=== PATIENT | female | born 1945 | race Caucasian/White ===

== ENCOUNTER → 2018-05-30 | Outpatient (CLI) | payer OTHER ==
[~2018-05-30] MED LIST: ACAI BERRY500 MG PO; ALLOPURINOL 30300 M2 PO; BURDOCK ROOT PO; CRANBERRY400 MG PO; DANDELION ROOT; DANDELION ROOT PO; ECHINACEA167 MG PO; FLAX OIL1000 MG PO; LUTEIN20 MG PO; MARSHMALLOW ROOT PO; ODORLESS GARLI500 MG PO; OMEGA Q PLUS PO; POTASSIUM ACETAT1 GM PO; PROBIOTIC & AC1 EACH PO; RESVERATROL100 MG PO; TART CHERRY EXTRACT PO; VITAMIN D3 PO; VITAMIN E600 UNIT PO; VITCB500GO PO; [UNRECOGNIZED DRUG - OTHER] PO; [UNRECOGNIZED DRUG - OTHER] PO; [UNRECOGNIZED DRUG - OTHER] PO; [UNRECOGNIZED DRUG - OTHER] PO
== END ==
LOC: M.RAD 08:56
DX: Z12.31 Encounter for screening mammogram for malignant neoplasm of breast (principal); N91.2 Amenorrhea, unspecified; E87.6 Hypokalemia; Z78.0 Asymptomatic menopausal state

== ENCOUNTER 2018-07-24 17:15 | Inpatient (IN) | payer OTHER ==
[~2018-07-24] VITALS: Ht 162.6 cm; Wt 33.6 kg
[~2018-07-24 17:15] MED LIST changes: -POTASSIUM ACETAT1 GM PO
[2018-07-24 17:23] VITALS: BP 115/66
[2018-07-24] MEDS ORDERED: POTASSIUM ACETAT1 GM PO (17:30)
[2018-07-24 17:42] LABS: HEMATOCRIT 25.4 % (37.0-47.0); HEMOGLOBIN 7.9 gm/dL (12.0-15.0); MCHC 31.2 g/dL (28.0-37.0); MCV 73.5 fL (80.0-100.0); MPV 6.5 fl. (7.2-11.1); NUCLEATED RBCS 0 /100WBC; PLATELET COUNT* 497 thou/uL (150-400); RBC 3.45 mil/uL (4.20-5.00); RDW-CV 16.4 % (10.5-14.5); WBC 8.5 thou/uL (4.0-11.0)
[2018-07-24 17:48] LABS: APTT 24.5 Seconds (25.0-31.3); PROTIME 9.9 Seconds (9.20-11.50)
[2018-07-24 17:58] LABS: ALBUMIN 3.3 g/dL (3.4-5.0); ALKALINE PHOSPHATASE 88 U/L (46-116); ANION GAP 1 mmol/L (7-16); BUN 39 mg/dL (7-18); CALCIUM 9.6 mg/dL (8.5-10.1); CHLORIDE 86 mmol/L (98-107); CREATININE 2.5 mg/dL (0.6-1.3); GLUCOSE 115 mg/dL (70-99); NT-PRO BRAIN NAT PEPTIDE 281 pg/mL (<300); SGOT 24 U/L (15-37); SGPT 18 U/L (30-65); SODIUM 132 mmol/L (136-145); TOTAL BILIRUBIN 0.3 mg/dL (<0.1-1.0); TOTAL PROTEIN 7.2 g/dL (6.4-8.2); TROPONIN-I LEVEL <0.06 ng/mL (<0.06)
[2018-07-24 18:03] LABS: CO2 45 mmol/L (21-32)
[2018-07-24 18:04] LABS: POTASSIUM 2.5 mmol/L (3.5-5.1)
[2018-07-24 18:09] LABS: ABSOLUTE LYMPHOCYTES 0.9 thou/uL (0.8-5.3); ABSOLUTE MONOCYTES 0.5 thou/uL (0.0-1.2); ABSOLUTE NEUTROPHILS 7.1 thou/uL (1.6-8.1); ANISOCYTOSIS 1+; PLATELET ESTIMATE INCREASED
[2018-07-24 18:10] LABS: MICROCYTES 1+
[2018-07-24 18:11] LABS: HYPOCHROMASIA Occasional; OVALOCYTES Occasional
[2018-07-24 19:53] VITALS: BP 104/65
[2018-07-24 20:00] VITALS: BP 118/72
[2018-07-24 20:11] VITALS: BP 118/72
[2018-07-24 23:53] VITALS: BP 101/47
[2018-07-25] VITALS (7 sets, daily range): BP systolic 91–118; BP diastolic 48–71
[2018-07-25 00:40] LABS: URINE BILIRUBIN NEGATIVE (Negative); URINE BLOOD NEGATIVE (Negative); URINE CLARITY CLEAR; URINE COLOR YELLOW; URINE GLUCOSE-RANDOM NEGATIVE (Negative); URINE KETONES NEGATIVE (Negative); URINE LEUKOCYTES-REFLEX NEGATIVE (Negative); URINE NITRITE-REFLEX NEGATIVE (Negative); URINE PROTEIN NEGATIVE (Negative); URINE UROBILINOGEN 0.2 E.U./dl (0.2-1.0)
--- NOTE | 2018-07-25 04:41 | NUR ---
RECEIVED REPORT FROM ED NURSE. PT TRANSFERRED TO 227. PT A&OX4. VSS. ADMISSION HISTORY AND PHYSICAL ASSESSMENT COMPLETED AND CHARTED. PT ON RA WITH 98% O2 SAT. PT TRACING SR ON TELE. PT UP STANDBY ASSIST TO TOILET. DENIES ANY PAIN OR DISCOMFORT. ORIENTED TO ROOM AND CALL LIGHT. PT FOR CT OF THE ABDOMEN WITH ORAL CONTRAST THIS AM. HOURLY ROUNDING OBSERVED. CALL LIGHT WITHIN REACH. BED IN LOW POSITION. BED ALARM ON.
[2018-07-25 05:17] LABS: ABSOLUTE EOSINOPHILS 0.1 thou/uL (0.0-0.7); ABSOLUTE LYMPHOCYTES 1.1 thou/uL (0.8-5.3); ABSOLUTE MONOCYTES 0.6 thou/uL (0.0-1.2); ABSOLUTE NEUTROPHILS 3.5 thou/uL (1.6-8.1); BASOPHILS 0.9 %; EOSINOPHILS 1.3 %; HEMATOCRIT 20.8 % (37.0-47.0); LYMPHOCYTES 20.9 %; MCH 22.9 pg (26.0-34.0); MCV 73.8 fL (80.0-100.0); MONOCYTES 11.5 %; MPV 6.6 fl. (7.2-11.1); NUCLEATED RBCS 0 /100WBC; POLYS 65.4 %; RBC 2.82 mil/uL (4.20-5.00); RDW-CV 16.2 % (10.5-14.5); WBC 5.3 thou/uL (4.0-11.0)
[2018-07-25 05:25] LABS: POTASSIUM 3.6 mmol/L (3.5-5.1)
[2018-07-25 05:32] LABS: PLATELET COUNT* 400 thou/uL (150-400)
[2018-07-25 05:36] LABS: HEMOGLOBIN 6.5 gm/dL (12.0-15.0)
--- NOTE | 2018-07-25 16:15 | NUR ---
SPOKE WITH PT. SHE WAS ALERT AND ORIENTED. SHE SAID SHE LIVES HOME ALONE. HER FAMILY IS TRYING TO GET HER HOUSE READY TO SELL. SHE CAN'T LIVE BY HERSELF ANYMORE. SHE IS HAVING A LOT OF FALLS AND LEGS GIVE OUT. SHE WANTS TO FIND AN ASSISTED LIVING FACILITY. SHE IS SERIOUSLY LOOKING AT THE [place]. SHE HAS A VERYY SUPPORTIVE FAMILY. HER GRANDAUGHTER CAME IN WHILE I WAS THERE.SHE HAS A CANE AND WALKER AT HOME. SHE AHS ANNE MARIE PAY TO HAVE HER HOUSE CLEANED AND LAWN MOWED. SHE SAID SHE HAS WONDERFUL NEIGHBORS. PT.HAS TO ROLL AROUND ON A STOOL TO COOK IN THE KITCHEN. DISCUSSED MEALS ON WHEELS. SHE SAID SHE NEVER HAS HAD THEM BEFORE. CM WILL FOLLOW FOR DISCHARGE NEEDS.
--- NOTE | 2018-07-25 16:30 | EKG ---
[place] [address] ELECTROCARDIOGRAM REPORT Name: ANY NIETO Room: [place] [address] ADM IN .R.#: [id number] Admission: 07/24/18 Attend Phys: Lyle Harry MD Discharge: Date of : 41 Report #: [id number] THIS REPORT FOR: //name// [facility] ED Test Date: 2018-07-24 Test Time: 17:30:34 Pat Name: ANY NIETO Department: Room: [facility] Gender: F Shopping Inspector: NORMAN : 1945 Requested By: Benton Skelton Order Number: [id number] MD: Alex Anthony Measurements Intervals [place] Rate: 92 P: 92 CO: 182 QRS: -26 QRSD: 103 T: 90 QT: 378 QTc: 468 Interpretive Statements Sinus rhythm Short run of svt Borderline left axis deviation Anteroseptal infarct, age indeterminate Compared to ECG 03/12/2017 18:24:55 Myocardial infarct finding now present Left anterior fascicular block no longer present Electronically Signed On 07-25-2018 16:29:56 CDT by Alex Anthony [email or web address] <ELECTRONICALLY SIGNED> By: Alex Anthony MD, FACC 07/25/18 1629 1730 1730 Alex Anthony MD, FAC /EPI
[2018-07-26 03:52] VITALS: BP 122/77; BP 91/46
[2018-07-26 04:34] LABS: ABSOLUTE EOSINOPHILS 0.1 thou/uL (0.0-0.7); ABSOLUTE MONOCYTES 0.7 thou/uL (0.0-1.2); ABSOLUTE NEUTROPHILS 5.1 thou/uL (1.6-8.1); BASOPHILS 0.6 %; EOSINOPHILS 0.8 %; HEMATOCRIT 27.6 % (37.0-47.0); LYMPHOCYTES 14.7 %; MCH 24.4 pg (26.0-34.0); MCV 76.2 fL (80.0-100.0); MONOCYTES 10.6 %; MPV 6.5 fl. (7.2-11.1); NUCLEATED RBCS 0 /100WBC; PLATELET COUNT* 402 thou/uL (150-400); POLYS 73.3 %; RBC 3.62 mil/uL (4.20-5.00); RDW-CV 17.4 % (10.5-14.5); WBC 6.9 thou/uL (4.0-11.0)
[2018-07-26 04:47] LABS: CALCIUM 8.7 mg/dL (8.5-10.1); CREATININE 1.7 mg/dL (0.6-1.3)
[2018-07-26 05:00] LABS: HEMOGLOBIN 8.8 gm/dL (12.0-15.0)
--- NOTE | 2018-07-26 05:07 | NUR ---
ASSUMED CARE OF PT AFTER REPORT AT 1930. PT A&OX4. VSS. PHYSICAL ASSESSMENT COMPLETED AND CHARTED. PT ON RA WITH 99% O2 SAT. PT TRACING SR ON TELE. PT UP STANDBY ASSIST TO TOILET. PT REFUSED LOVENOX. THIS NURSE EXPLAINED THE INDICATION FOR LOVENOX. COMMUNICATES UNDERSTANDING BUT STILL REFUSES. PT STATED HER THROAT HURTS DUE TO COUGHING. SHE'S BEEN COUGHING SINCE SHE HAD HER CT WITH ORAL CONTRAST. PT REQUESTED FOR COUGH PILL-PROVIDER INFORMED. HOURLY ROUNDING OBSERVED. CALL LIGHT WITHIN REACH. BED IN LOW POSITION. BED ALARM ON.
[2018-07-26 05:30] LABS: POTASSIUM 2.9 mmol/L (3.5-5.1)
[2018-07-26 08:00] VITALS: BP 100/62
[2018-07-26 11:55] VITALS: BP 96/57
--- NOTE | 2018-07-26 14:17 | NUR ---
CONTINUE TO FOLLOW, PT HAS DC ORDERS. MET WITH PT, SHE DECLINES HH. STATES SHE DOESN'T WANT ANY 'HOME VISITS.' PLANS TO RETURN HOME. STATES THEY ARE IN THE PROCESS OF CLEANING OUT HER HOME AND SELLING IT SO SHE CAN MOVE.
--- NOTE | 2018-07-26 16:27 | NUR ---
ASSUMED CARE OF PT AT 0740. PT REMAINS A&O X4 CALM AND COOPERATIVE. VSS AND TRACING SR ON THE MONITOR. PT HAS HAD NO C/O PAIN OR DISTRESS TODAY AND IS BEING DISCHARGED HOME AT THIS TIME. PT AND DAUGHTER VERBALIZED UNDERSTANDING OF DC INSTRUCTIONS. ALL PERSONAL BELONGINGS AND DISCHARGE PAPERWORK TAKEN BY PT AT DISCHARGE.
--- NOTE | 2018-08-05 09:50 | CON ---
[address] [address] CONSULTATION Name: ANY NIETO Room: 227-1 [facility] IN M.R.#: [id number] Admission: 07/24/18 Attend Phys: Lyle Harry MD Discharge: 07/26/18 Date of : 41 Report #: [id number] THIS REPORT FOR: //name// CC: Lyle Grimaldo DATE OF SERVICE: 07/25/2018 ROOM NUMBER: 227. HISTORY OF PRESENT ILLNESS: This is a 72-year-old female patient who is not a very good historian. This patient has multiple problems over a period of time. She also try to manage many of those problems by herself by taking some dietary supplements and herbs as she has taken that for a long time. She has not taken the treatment, which was prescribed to her for her anemia. She indicates that she has unintentional weight loss, her appetite is poor and she has been falling down. Her falling down is because of weakness as well as she indicates she has episode where she will have sudden loss of strength in her lower extremities. She describes something like a drop attack. How often that it happened is not clear. She has not hurt herself with this. She does not know whether she gets an opportunity to sit down or break the fall. History is just very vague in that regard. She is losing weight. She is anemic and when she came in, she was also hypokalemic. This is also associated with pretty significantly impaired dietary intake. She had those trauma, which started it and all of it started spontaneously. REVIEW OF SYSTEMS: Positive for anemia, hypokalemia, chronic renal disease, weakness in all 4 extremities. Prior history of anemia from which she took shot, prior history of kidney failure for which I do not think she had followup. Even before, she has been admitted with hypokalemia. She did have a TSH and vitamin B12 during this admission and that was unremarkable. She denies any associated stroke. At one time, she had a kidney tumor removed. This was her relevant 14-point review of systems. She denies any new eye, ENT, cardiac, respiratory, , musculoskeletal, constitutional, dermatological, hematological, psychiatric, throat, allergic symptom associated with present symptomatology except as described above. PAST MEDICAL HISTORY: Positive for anemia as well as kidney failure. FAMILY HISTORY: Negative for any early age stroke. SOCIAL HISTORY: This patient does not smoke or drink alcohol. PHYSICAL EXAMINATION: Indicates she is alert, responsive, oriented. Her speech, concentration, fund of knowledge and memory is a reasonably preserved. Cranial nerve examination 2-12 looks unremarkable. She is weak in all 4 [place] [address] CONSULTATION Name: ANY NIETO Room: [address] IN ..#: [id number] Admission: 07/24/18 Attend Phys: Lyle Harry MD Discharge: 07/26/18 Date of : 41 Report #: [id number] extremities. She has generalized weakness. Her muscle and in general, she appears emaciated. I could not elicit the reflexes in the lower extremities. Her position sense is intact. Her tone is unremarkable. [id number] is unremarkable. I could not look at the fundus. She is very thinly built individual whose vision and hearing look adequate. Her pulses are palpable in the lower extremities. She has no edema, cyanosis or jaundice. Cardiac examination is unremarkable. No respiratory difficulty or rhonchi. No thyroid mass or carotid bruit, no meningeal sign or facial dysmorphic feature. Her blood pressure is 98/48, respiration is 17, pulse is 72, temperature is 98.4. LABORATORY DATA: Her hemoglobin is only 6.5 and when she came in, her potassium was 2.5. Her GFR is 24 now, it was 19 when she came. She did have a CT scan of the head on admission, which shows generalized atrophy. IMPRESSION: This patient's history is extremely poor and a definite diagnosis is not possible. I suspect many of the patient's problem is because of inadequate p.o. intake. This episode she is having where she falls is not clear. I suspect they may also be related to her metabolic problems. However, the way she describes, we will rule out the possibility of posterior fossa transient ischemic attack, especially we will see if there is any stenosis present, which become symptomatic with either hypotension or her anemia or electrolyte imbalances. If that is okay, the main evaluation and management is going to be management of the systemic problem. RECOMMENDATIONS: 1. I will go ahead and do the MRI and check on that. 2. If that shows some abnormality, I will follow up. Otherwise, I will suggest she continue to work up the systemic problem and managing that. I discussed all of it with the patient and the family and they are agreeable with this plan. Thank you very much for this referral and if you have any question, please feel free to contact me. <ELECTRONICALLY SIGNED> By: Henry Crowe MD 08/05/18 0950 1040 [id number] Crowe MD /nt
--- NOTE | 2018-08-12 11:23 | CON ---
[address] [address] CONSULTATION Name: ANY NIETO Maximilian Room: [address] IN M.R.#: [id number] Admission: 07/24/18 Attend Phys: Lyle Harry MD Discharge: 07/26/18 Date of : 41 Report #: [id number] THIS REPORT FOR: //name// CC: Lyle Grimaldo HISTORY OF PRESENT ILLNESS: This is a 72-year-old female with past medical history significant for anemia and chronic kidney disease, who was referred to the hospital by her primary care practitioner because of weakness and weight loss. The patient reports that at baseline, she weighs around 100 pounds and over the last couple of months, has lost another 10 pounds. The patient reports loss of appetite and decreased p.o. intake. She denies any abdominal pain, nausea, vomiting, diarrhea, hematochezia, or hematemesis. The patient reports that she was diagnosed with anemia of chronic disease in the past and was placed on erythropoietin injections, but she stopped taking erythropoietin injections and instead began taking herbal and vitamin supplementation. She denies ever having an EGD or colonoscopy in the past, but reports that she had stool testing done for colon cancer screening. PAST MEDICAL HISTORY: As mentioned above. She has history of chronic renal disease and anemia. PAST SURGICAL HISTORY: The patient has history of tonsillectomy and hysterectomy. SOCIAL HISTORY: The patient denies alcohol, smoking or recreational drug use. FAMILY HISTORY: Mother and aunt were both diagnosed with breast cancer. The patient herself has never been diagnosed with breast cancer. REVIEW OF SYSTEMS: A comprehensive 10-point review of systems is negative except for what is mentioned above. PHYSICAL EXAMINATION: VITAL SIGNS: Temperature 37.1, pulse rate 78, blood pressure, blood pressure 115/65, respirations 18, pulse ox 100% on room air. GENERAL: The patient is alert, awake, oriented times 3. Mucous membranes are moist. HEENT: There is no congestion. There is conjunctival pallor noted. NECK: Supple. There is no supraclavicular lymphadenopathy. CARDIOVASCULAR: Rate and rhythm regular, S1, S2 present. LUNGS: Clear to auscultation bilaterally. ABDOMEN: Soft. There is no distention, no tenderness. No guarding or rigidity. EXTREMITIES: Warm, well perfused. There is no edema. NEUROLOGIC: There is no focal neurological deficit. SKIN: [place] [address] CONSULTATION Name: ANY NIETO Room: [address]#: [id number] Admission: 07/24/18 Attend Phys: Lyle Harry MD Discharge: 07/26/18 Date of : 41 Report #: [id number] LABORATORY DATA: Hemoglobin 6.5, hematocrit 20.8, MCV 73.8, sodium 137, potassium 3.6, chloride 96, bicarbonate 39, BUN 31, creatinine 2, iron saturation 2%, TIBC 424, ferritin 14, total bilirubin 0.3, AST 24, ALT 18, alkaline phosphatase 88. INR 1, no acute intra-abdominal pelvic process seen. Small hiatal hernia. Significant fluid filled gastric distention. Punctate calcifications in both kidneys consistent with nonobstructing bilateral renal calculi, anterolateral bladder diverticulum and significant history of scoliosis of the thoracolumbar spine. ASSESSMENT AND PLAN: This is a very pleasant 32-year-old female with past medical history significant for chronic kidney disease who is presenting with anemia, progressive weight loss of 10 pounds over her baseline weight of 100 pounds. The patient never had an esophagogastroduodenoscopy or colonoscopy before. I strongly recommended esophagogastroduodenoscopy and colonoscopy for the iron deficiency anemia and the weight loss, but the patient strongly denied both procedures at this time and said would reconsider if she changed her mind. I am going to order a tissue transglutaminase to see if she has celiac disease otherwise. <ELECTRONICALLY SIGNED> By: Luis Enrique Deal MD 08/12/18 1123 1654 [id number] Enrique Deal MD /nt
== END 2018-07-26 16:31 | disposition home or self-care (01) | DRG 682 ==
LOC: M.ERS 17:15 → M.2W 18:09 → M.TBA-ER 18:09 → M.2W 19:50
PROVIDERS: Family Medicine; ADMIT Internal Medicine
PROC: 30233N1 Transfusion of Nonautologous Red Blood Cells into Peripheral Vein, Percutaneous Approach (ICD-10-PCS; principal; 2018-07-25)
DX: N17.9 Acute kidney failure, unspecified (principal); E43 Unspecified severe protein-calorie malnutrition; E87.1 Hypo-osmolality and hyponatremia; D62 Acute posthemorrhagic anemia; Z68.1 Body mass index [BMI] 19.9 or less, adult; N18.4 Chronic kidney disease, stage 4 (severe); E87.6 Hypokalemia; D50.9 Iron deficiency anemia, unspecified; Z80.3 Family history of malignant neoplasm of breast

== ENCOUNTER → 2018-09-05 | Day surgery (SDC) | payer OTHER ==
[~2018-09-05] MED LIST changes: +POTASSIUM ACETAT1 GM PO
[2018-09-05 10:37] LABS: HEMATOCRIT 28.4 % (37.0-47.0); HEMOGLOBIN 9.1 gm/dL (12.0-15.0); MCH 25.8 pg (26.0-34.0); MCHC 32.1 g/dL (28.0-37.0); MCV 80.6 fL (80.0-100.0); MPV 6.8 fl. (7.2-11.1); RBC 3.52 mil/uL (4.20-5.00); WBC 6.2 thou/uL (4.0-11.0)
[2018-09-05 10:53] LABS: CREATININE 1.6 mg/dL (0.6-1.3)
[2018-09-05 10:58] LABS: TOTAL BILIRUBIN 0.5 mg/dL (<0.1-1.0); TOTAL PROTEIN 6.6 g/dL (6.4-8.2)
== END | disposition home or self-care (01) ==
LOC: M.SUR 09:54
PROVIDERS: Internal Medicine Gastroenterology
DX: K21.0 Gastro-esophageal reflux disease with esophagitis (principal); Z53.8 Procedure and treatment not carried out for other reasons; N18.4 Chronic kidney disease, stage 4 (severe); M10.9 Gout, unspecified; M19.90 Unspecified osteoarthritis, unspecified site; M81.0 Age-related osteoporosis without current pathological fracture; Z90.710 Acquired absence of both cervix and uterus; Z79.899 Other long term (current) drug therapy; Z98.890 Other specified postprocedural states

== ENCOUNTER 2019-01-29 20:05 | Inpatient (IN) | payer OTHER ==
[~2019-01-29] VITALS: Ht 162.6 cm; Wt 49.8 kg
[2019-01-29 20:05] VITALS: BP 124/67
[~2019-01-29 20:05] MED LIST changes: +ODORLESS GARL1250 MG PO; -ODORLESS GARLI500 MG PO
[2019-01-29 20:54] LABS: URINE BILIRUBIN NEGATIVE (Negative); URINE BLOOD 1+ (Negative); URINE CLARITY CLEAR; URINE COLOR YELLOW; URINE GLUCOSE-RANDOM NEGATIVE (Negative); URINE KETONES NEGATIVE (Negative); URINE PROTEIN 1+ (Negative); URINE UROBILINOGEN 0.2 E.U./dl (0.2-1.0)
[2019-01-29 20:58] LABS: URINE LEUKOCYTES-REFLEX 3+ (Negative); URINE NITRITE-REFLEX POSITIVE (Negative)
[2019-01-29 21:10] LABS: BACTERIA-REFLEX >30 Many /HPF (None Seen); CASTS None Seen /LPF (None Seen); CRYSTALS None Seen /LPF (None Seen); MUCUS 0-3 Light strn/LPF (None Seen); SQUAMOUS 0-3 Few /LPF (0-3); URINE WBC-REFLEX >25 Many /HPF (0-5); WBC CLUMPS Few (None Seen)
[2019-01-29 21:12] LABS: HEMATOCRIT 27.9 % (37.0-47.0); HEMOGLOBIN 8.8 gm/dL (12.0-15.0); MCHC 31.6 g/dL (28.0-37.0); MPV 7.6 fl. (7.2-11.1); NUCLEATED RBCS 0 /100WBC; PLATELET COUNT* 317 thou/uL (150-400); RBC 3.67 mil/uL (4.20-5.00); RDW-CV 18.3 % (10.5-14.5); WBC 21.4 thou/uL (4.0-11.0)
[2019-01-29 21:28] LABS: ALBUMIN 2.8 g/dL (3.4-5.0); ALKALINE PHOSPHATASE 498 U/L (46-116); ANION GAP 12 mmol/L (7-16); BUN 52 mg/dL (7-18); CALCIUM 8.7 mg/dL (8.5-10.1); CHLORIDE 99 mmol/L (98-107); CO2 24 mmol/L (21-32); GLUCOSE 123 mg/dL (70-99); LIPASE 217 U/L (73-393); NT-PRO BRAIN NAT PEPTIDE 1541 pg/mL (<300); POTASSIUM 3.9 mmol/L (3.5-5.1); SGOT 111 U/L (15-37); SGPT 86 U/L (30-65); SODIUM 135 mmol/L (136-145); TOTAL BILIRUBIN 0.8 mg/dL (<0.1-1.0); TOTAL PROTEIN 7.4 g/dL (6.4-8.2); TROPONIN-I LEVEL <0.06 ng/mL (<0.06)
[2019-01-29 21:31] LABS: ABSOLUTE BASOPHILS 0.2 thou/uL (0.0-0.2); ABSOLUTE LYMPHOCYTES 1.3 thou/uL (0.8-5.3); ABSOLUTE MONOCYTES 1.3 thou/uL (0.0-1.2); ABSOLUTE NEUTROPHILS 18.6 thou/uL (1.6-8.1); PLATELET ESTIMATE ADEQUATE
[2019-01-29 21:32] LABS: INFLUENZA A ANTIGEN None Detected (None Detect); INFLUENZA B ANTIGEN None Detected (None Detect)
[2019-01-29 22:50] VITALS: BP 104/46
[2019-01-29 22:52] VITALS: BP 119/59
[2019-01-29 23:30] VITALS: BP 104/45
[2019-01-30 04:00] VITALS: BP 120/61
--- NOTE | 2019-01-30 06:01 | NUR ---
RECEIVED REPORT FROM ANGELA JEROME. PT TRANSFERRED TO 213. PT A&OX4. VSS. BLAST SETTER IN PLACE. ADMISSION HISTORY AND PHYSICAL ASSESSMENT COMPLETED AND CHARTED. PT ON RA WITH 95% O2 SAT. PT TRACING SR ON TELE. PT UP WITH 1 ASSIST TO BSC. PT ORIENTED TO ROLOM & CALL LIGHT. PT DENIES ANY PAIN OR DISCOMFORT. PT RESTED WELL ON BED. CALL LIGHT WITHIN REACH.
[2019-01-30 08:00] VITALS: BP 104/44
[2019-01-30 09:38] LABS: ABSOLUTE LYMPHOCYTES 0.5 thou/uL (0.8-5.3); ABSOLUTE MONOCYTES 1.9 thou/uL (0.0-1.2); BASOPHILS 0.2 %; HEMOGLOBIN 7.7 gm/dL (12.0-15.0); LYMPHOCYTES 2.4 %; MCH 24.2 pg (26.0-34.0); MCV 75.7 fL (80.0-100.0); MONOCYTES 9.4 %; MPV 7.5 fl. (7.2-11.1); NUCLEATED RBCS 0 /100WBC; PLATELET COUNT* 272 thou/uL (150-400); RBC 3.18 mil/uL (4.20-5.00); RDW-CV 17.9 % (10.5-14.5); WBC 20.5 thou/uL (4.0-11.0)
[2019-01-30 09:46] LABS: CALCIUM 8.1 mg/dL (8.5-10.1); CREATININE 1.8 mg/dL (0.6-1.3); MAGNESIUM 2.2 mg/dL (1.8-2.4); POTASSIUM 4.1 mmol/L (3.5-5.1)
--- NOTE | 2019-01-30 11:16 | NUR ---
Pt is A&O. Resides at home alone, states that she is planning on moving to [facility] on 02/04. Pt is independent, continues to drive and cooks small meals. Pt pays someone to clean her home. Pt has a walker and cane that she uses for mobility. No hx of HH. Hx of skilled at [facility]. Pt states that she is has a good support sx. Goal is home at pr. Following.
[2019-01-30 11:25] VITALS: BP 102/58
--- NOTE | 2019-01-30 17:04 | EKG ---
[place] [address] ELECTROCARDIOGRAM REPORT Name: ANY NIETO Room: [address] ADM IN M.R.#: [id number] Admission: 01/29/19 Attend Phys: Samson Laws MD Discharge: Date of : 41 Report #: [id number] THIS REPORT FOR: //name// [facility] ED Test Date: 2019-01-29 Test Time: 20:28:44 Pat Name: ANY NIETO Department: Room: [facility] Gender: F Tire Rebuilder: Kira CHASE : 1945 Requested By: Benton Skelton Order Number: [id number] MD: Sd Ballesteros Measurements Intervals [place] Rate: 96 P: CO: QRS: -37 QRSD: 144 T: 66 QT: 341 QTc: 431 Interpretive Statements Sinus rhythm Baseline artifact Compared to ECG 07/24/2018 17:30:34 Significant changes not noted Electronically Signed On 01-30-2019 17:04:38 CDT by Sd Ballesteros [email or web address] <ELECTRONICALLY SIGNED> By: Sd Ballesteros MD, [facility] 01/30/19 1704 27 27 Sd Ballesteros MD, [facility] /EPI
[2019-01-30 17:29] VITALS: BP 137/68
[2019-01-30 20:00] VITALS: BP 120/51
--- NOTE | 2019-01-30 20:00 | NUR ---
RECEIVED REPORT AND ASSUMED CARE OF PT, ASSESSMENT COMPLETED. PT PLEASANT AND COOPERATIVE. SNUGGLED DOWN IN BED AND REQUESTING NOT TO BE MOVED BECAUSE SHE IS COMFORTABLE. TEMPT 101.3, DR JOHNSON NOTIFIED AND TYLENOL ORDERED. TELEMETRY ON SHOWING SR. WILL CONT TO MONITOR AND ASSIST NEEDED.
[2019-01-31 01:04] VITALS: BP 95/60
[2019-01-31 04:00] VITALS: BP 112/62
[2019-01-31 05:11] LABS: HEMATOCRIT 22.9 % (37.0-47.0); HEMOGLOBIN 7.2 gm/dL (12.0-15.0); MCHC 31.4 g/dL (28.0-37.0); MCV 76.2 fL (80.0-100.0); MPV 7.8 fl. (7.2-11.1); RDW-CV 17.9 % (10.5-14.5); WBC 16.9 thou/uL (4.0-11.0)
[2019-01-31 05:27] LABS: CALCIUM 7.8 mg/dL (8.5-10.1); CREATININE 1.7 mg/dL (0.6-1.3); POTASSIUM 3.5 mmol/L (3.5-5.1)
--- NOTE | 2019-01-31 06:39 | NUR ---
SLEPT WELL TONIGHT. UP TO BSC WITH SBA, STEADY. HAVING OCC MOIST COUGH, NON-PROD. TELEMETRY CONT TO SHOW SR. NO CHANGE IN ASSESSMENT. AFEBRILE DURING NIGHT AFTER HAVING TEMP 0F 101.3. HS GOALS OF REST AND SAFETY ACHIEVED, HOURLY ROUNDING OBSERVED.
[2019-01-31 08:00] VITALS: BP 111/55
[2019-01-31 11:34] VITALS: BP 121/67
--- NOTE | 2019-01-31 12:07 | NUR ---
QUALITY CLOTH TESTER SPOKE TO THE PATIENT TO DISCUSS DISCHARGE PLANNING AND SKILLED AT D/C. PATIENT UNWILLING TO DISCUSS STATING 'I'M GOING TO [place], AND I'VE ALREADY HAD MY 3 DAY TRIAL STAY'. D/C ACCOUNT MANAGEMENT ASSISTANT ATTEMPTED TO INFORM THE PATIENT THAT AT THIS POINT SHE IS NEEDING A LOT OF ASSISTANCE WITH MOBILITY AND WILL NEED SKILLED THERAPY PRIOR TO GOING TO [place]. PATIENT STILL UNWILLING TO DISCUSS. D/C ACCOUNT MANAGEMENT ASSISTANT ATTEMPTED TO CONTACT THE PATIENT'S DTR TO DISCUSS FURTHER, AND LEFT A MESSAGE FOR HER TO RETURN CALL. CM WILL REMAIN AVIALABLE TO ASSIST AND FOLLOW NEEDED.
[2019-01-31 15:51] VITALS: BP 119/57
--- NOTE | 2019-01-31 18:34 | NUR ---
ASSUMED PT CARE REPORT RECEIVED FROM NURSE. PT IS AOX4 SR ON RESEARCH METHODS INSTRUCTOR. ON RA. VSS. NO FEVER. DENIES PAIN. WORKED WITH PT/OT. OUT OF BED TO CHAIR. GOOD APPETITE. CALL LIGHT AT REACH
[2019-02-01] VITALS: BP 138/70
--- NOTE | 2019-02-01 02:45 | NUR ---
RECIEVED REPORT AND ASSUMED CARE AT 1900. ALMOND HULLER IN PLACE. VITAL SIGNS STABLE. PT UP WITH STANDBY ASSIST TO COMMODE. PT HAS SOME RIGHT KNEE PAIN AND PAIN MEDS GIVEN ORDERED. ASSESSMENT COMPLETED DISCUSSED PLAN OF CARE AND PT UNDERSTANDS. BED LOCKED, ALARM ON AND CALL LIGHT WITHIN REACH. FALL PRECAUTIONS IN PLACE. HOURLY ROUNDING DONE AND ALL NEEDS MET. NURSING WILL CONTINUE TO MONITOR.
[2019-02-01 04:00] VITALS: BP 136/63
[2019-02-01 04:43] LABS: HEMATOCRIT 24.9 % (37.0-47.0); HEMOGLOBIN 7.8 gm/dL (12.0-15.0); MCH 23.8 pg (26.0-34.0); MCHC 31.4 g/dL (28.0-37.0); MCV 75.7 fL (80.0-100.0); MPV 7.6 fl. (7.2-11.1); RBC 3.3 mil/uL (4.20-5.00); RDW-CV 18.5 % (10.5-14.5); WBC 17.6 thou/uL (4.0-11.0)
[2019-02-01 04:58] LABS: CALCIUM 8.1 mg/dL (8.5-10.1); CREATININE 1.5 mg/dL (0.6-1.3); POTASSIUM 3.8 mmol/L (3.5-5.1)
[2019-02-01 12:00] VITALS: BP 138/64
--- NOTE | 2019-02-01 18:34 | NUR ---
PATIENT RESTING IN BED. VITAL SIGNS STABLE AND HOURLY ROUNDING COMPLETD FOR PATINET SAFETY.
[2019-02-01 23:44] VITALS: BP 125/65
--- NOTE | 2019-02-02 03:15 | NUR ---
RECIEVED REPORT AND ASSUMED CARE AT 1900. BINDER STRIPPER MACHINE IN PLACE. VITAL SIGNS ARE STABLE. PT IS UP WITH SBA. SHE HAS PAIN IN RIGHT KNEE AND PAIN MEDS GIVEN ORDERED. ASSESSMENT COMPLETED AND DISCUSSED PLAN OF CARE PT UNDERSTANDS. BED LOCKED, ALARM ON AND CALL LIGHT WITHIN REACH. FALL PRECAUTIONS IN PLACE. HOURLY ROUNDING DONE AND ALL NEEDS MET. NURSING WILL CONTINUE TO MONITOR.
[2019-02-02 05:01] LABS: HEMATOCRIT 21.7 % (37.0-47.0); MCH 23.5 pg (26.0-34.0); MCHC 31.6 g/dL (28.0-37.0); MCV 74.4 fL (80.0-100.0); MPV 7.6 fl. (7.2-11.1); RBC 2.92 mil/uL (4.20-5.00); RDW-CV 18.3 % (10.5-14.5); WBC 17.4 thou/uL (4.0-11.0)
[2019-02-02 05:13] LABS: HEMOGLOBIN 6.9 gm/dL (12.0-15.0)
[2019-02-02 05:31] LABS: CREATININE 1.4 mg/dL (0.6-1.3); MAGNESIUM 1.8 mg/dL (1.8-2.4); POTASSIUM 3.4 mmol/L (3.5-5.1)
[2019-02-02 08:10] VITALS: BP 153/60
[2019-02-02 11:32] VITALS: BP 115/66; BP 119/63; BP 146/76
[2019-02-02 12:00] VITALS: BP 115/66
--- NOTE | 2019-02-02 14:38 | NUR ---
PT A/O. TELE TRACKING NSR AND ALL VSS ON ROOM AIR. DENIES CP, SOA. BLOOD TRANSFUSED WITHOUT DIFFICULTY OR REACTION. EDUCATED ON SAFETY AND PLAN OF CARE. PLEASE SEE ASSESSMENT FOR ADDITIONAL INFORMATION. WILL CONTINUE TO MONITOR
[2019-02-02 16:00] VITALS: BP 147/72
[2019-02-02 16:57] LABS: HEMATOCRIT 28.9 % (37.0-47.0)
[2019-02-02 16:58] LABS: HEMOGLOBIN 9.2 gm/dL (12.0-15.0)
[2019-02-02 20:00] VITALS: BP 141/74
[2019-02-03] VITALS: BP 145/70
--- NOTE | 2019-02-03 03:10 | NUR ---
RECIEVED REPORT AND ASSUMED CARE AT 1900. SAFETY SPECIALIST IN PLACE. VITAL SIGNS STABLE. PT IS UP WITH SBA TO COMMODE. SHE HAS SOME PAIN FROM TIME TO TIME IN RIGHT KNEE D/T PREVIOUS SURGERY AND HAS ROUTINE TYLENOL THAT HELPS MANAGE PAIN. ASSESSMENT COMPLETED, DISCUSSED PLAN OF CARE AND PT UNDERSTANDS. BED LOCKED, ALARM ON AND CALL LIGHT WITHIN REACH. FALL PRECAUTIONS IN PLACE. HOURLY ROUNDING DONE AND ALL NEEDS MET. NURSING WILL CONTINUE TO MONITOR.
[2019-02-03 04:00] VITALS: BP 120/60
[2019-02-03 04:39] LABS: HEMATOCRIT 26.8 % (37.0-47.0); HEMOGLOBIN 8.5 gm/dL (12.0-15.0); MCH 24.7 pg (26.0-34.0); MCHC 31.8 g/dL (28.0-37.0); MCV 77.6 fL (80.0-100.0); MPV 7.6 fl. (7.2-11.1); RBC 3.45 mil/uL (4.20-5.00); RDW-CV 18.8 % (10.5-14.5)
[2019-02-03 04:53] LABS: CALCIUM 8.2 mg/dL (8.5-10.1); CREATININE 1.3 mg/dL (0.6-1.3); POTASSIUM 3.8 mmol/L (3.5-5.1)
[2019-02-03 08:00] VITALS: BP 140/69
--- NOTE | 2019-02-03 09:50 | NUR ---
DIRECTOR OF CARDIOLOGY SERVICE LINE SPOKE TO THE PATIENT TO DISCUSS DISCHARGE PLANNING AND SKILLED AT D/C. PATIENT CONTINUES TO DECLINE SKILLED DESPITE EDUCATION. CM WILL REMAIN AVIALABLE TO ASSIST AND FOLLOW NEEDED.
[2019-02-03 11:57] VITALS: BP 132/67
[2019-02-03] MEDS ORDERED: CIPRO500 MG PO (12:14)
[2019-02-03 13:07] VITALS: BP 132/67
--- NOTE | 2019-02-03 13:17 | NUR ---
PT A/O. TELE TRACKING NSR AND ALL VSS ON ROOM AIR. DENIES CP, SOA. PT LOOKING FORWARD TO DC LATER TODAY. EDUCATED ON SAFETY AND PLAN OF CARE. PLEASE SEE ASSESSMENT FOR ADDITIONAL INFORMATION. WILL CONTINUE TO MONITOR
[2019-02-03 13:49] VITALS: BP 132/67
--- NOTE | 2019-02-03 13:53 | NUR ---
Pt discharging to home today, plans to move to [place] [facility] tomorrow. CM faxed HH orders to [facility].
== END 2019-02-03 14:32 | disposition home health service (06) | DRG 872 ==
LOC: M.ERS 20:05 → M.TBA-ER 21:42 → M.2W 21:42
PROVIDERS: Family Medicine; Internal Medicine; ADMIT Internal Medicine
PROC: 30233N1 Transfusion of Nonautologous Red Blood Cells into Peripheral Vein, Percutaneous Approach (ICD-10-PCS; principal; 2019-02-02)
DX: A41.9 Sepsis, unspecified organism (principal); N18.4 Chronic kidney disease, stage 4 (severe); E44.0 Moderate protein-calorie malnutrition; Z68.1 Body mass index [BMI] 19.9 or less, adult; N30.90 Cystitis, unspecified without hematuria; K21.9 Gastro-esophageal reflux disease without esophagitis; M19.90 Unspecified osteoarthritis, unspecified site; Z96.651 Presence of right artificial knee joint; R31.9 Hematuria, unspecified; B96.20 Unspecified Escherichia coli [E. coli] as the cause of diseases classified elsewhere; E87.6 Hypokalemia; D63.8 Anemia in other chronic diseases classified elsewhere; E86.9 Volume depletion, unspecified; W19.XXXA Unspecified fall, initial encounter; Y93.89 Activity, other specified; Y92.098 Other place in other non-institutional residence as the place of occurrence of the external cause; Y99.8 Other external cause status; Z79.899 Other long term (current) drug therapy